=== PATIENT | female | born 1980 | race Caucasian/White ===

== ENCOUNTER 2018-03-06 15:56 | Emergency (ER) | payer OTHER ==
[~2018-03-06] VITALS: Ht 170.2 cm; Wt 74.8 kg
[2018-03-06 15:56] VITALS: BP 123/86
[~2018-03-06 15:56] MED LIST: CIPR500T94 PO; HYDR-971 PO; NAPR-514 PO; PENI250T85 PO
[2018-03-06] MEDS ORDERED: CYCL-331 PO (16:31)
--- NOTE | 2018-03-06 16:32 | PHYS DOC ---
Past History Past Medical History: No Pertinent History Past Surgical History: Alcohol Use: None Drug Use: None Adult General Chief Complaint Chief Complaint: BACK PAIN OR INJURY HPI HPI Patient is a 37 year old F who presents with low back pain. She states that she has had this back pain intermittently over the past 10+ years. Over the past 2- 3 days her pain has been worse and she has been less active. Her pain is worse with movement and palpation. She feels that her pain is improved with positioning and rest. She denies radiation. She denies any other associated symptoms. Review of Systems Review of Systems Constitutional: Denies fever or chills [] Eyes: Denies change in visual acuity, redness, or eye pain [] HENT: Denies nasal congestion or sore throat [] Respiratory: Denies cough or shortness of breath [] Cardiovascular: No additional information not addressed in HPI [] GI: Denies abdominal pain, nausea, vomiting, bloody stools or diarrhea [] : Denies dysuria or hematuria [] Musculoskeletal: Denies joint pain [] Integument: Denies rash or skin lesions [] Neurologic: Denies headache, focal weakness or sensory changes [] Endocrine: Denies polyuria or polydipsia [] All other systems were reviewed and found to be within normal limits, except as documented in this note. Family History Family History No pertinent family medical history was reported Current Medications Current Medications Medications reviewed Allergies Allergies Allergies Coded Allergies Type Severity Reaction Last Updated Verified No Known Drug Allergies 11/30/15 No Physical Exam Physical Exam Constitutional: Well developed, well nourished, no acute distress, non-toxic appearance. [] HENT: Normocephalic, atraumatic, bilateral external ears normal, oropharynx moist Eyes: EOMI, conjunctiva normal, no discharge. [] Neck: Normal range of motion Cardiovascular:Heart rate regular rhythm, Lungs & Thorax: Bilateral breath sounds clear to auscultation [] Abdomen: Bowel sounds normal, soft, no tenderness, no masses, no pulsatile masses. [] Skin: Warm, dry, no erythema, no rash. [] Back: Mild paraspinal muscle spasms noted in the lumbar and lower thoracic spine more so on the right than the left Extremities: No tenderness, no cyanosis, no clubbing, ROM intact, no edema. [] Neurologic: Alert and oriented X 3, normal motor function, normal sensory function, no focal deficits noted. [] Psychologic: Affect normal, judgement normal, mood normal. [] Current Patient Data Vital Signs Vital Signs Date Time Temp Pulse Resp B/P (MAP) Pulse Ox O2 Delivery O2 Flow Rate FiO2 03/06/18 15:56 98.1 84 20 99 Room Air EKG EKG [] Radiology/Procedures Radiology/Procedures [] Course & Med Decision Making Course & Med Decision Making Pertinent Labs and Imaging studies reviewed. (See chart for details) [] Dragon Disclaimer Dragon Disclaimer This electronic medical record was generated, in whole or in part, using a voice recognition dictation system. Departure Departure: Impression: Primary Impression: Low back pain Disposition: HOME, SELF-CARE Condition: STABLE Referrals: PCP,MANUEL (PCP) Patient Instructions: Back Exercises Additional Instructions: Itzel was seen in the emergency department for back pain. No emergency medical condition was found on history or physical exam. She was encouraged to continue her daily activity as tolerated. She is also advised to stretch and strengthen her core. She was given a prescription for muscle relaxers to be used as needed over the next 2-3 days. She was encouraged to follow-up with her primary care doctor as needed for further management. Scripts Cyclobenzaprine Hcl (CYCLOBENZAPRINE HCL) 10 Mg Tablet 1 TAB PO TID Y for PAIN for 3 Days, #9 TAB Prov: GEO FLORES MD 03/06/18 Problem Qualifiers Primary Impression: Low back pain Chronicity: unspecified Back pain laterality: bilateral Sciatica presence: without sciatica Qualified Codes: M54.5 - Low back pain GEO FLORES MD Mar 06, 2018 16:31
== END 2018-03-06 16:40 | disposition home or self-care (01) ==
LOC: ER 15:56
DX: M54.5 Low back pain (principal)
CPT/HCPCS: 99283

== ENCOUNTER → 2018-10-28 | Outpatient (CLI) | payer OTHER ==
[~2018-10-28] MED LIST changes: +CYCL-331 PO; +HYDR-3165 PO; -HYDR-971 PO
--- NOTE | 2018-10-28 15:33 | RAD ---
PA and lateral chest x-ray without comparison for chest pain and left arm numbness, cough. FINDINGS: The lungs are clear. The cardiomediastinum is grossly unremarkable. No significant soft tissue or osseous abnormality is seen. There has been a prior cholecystectomy. IMPRESSION: 1. No acute cardiopulmonary abnormality. Electronically signed by: Sai Humphrey MD (10/28/2018 3:29 PM) [id number]
== END | disposition home or self-care (01) ==
LOC: PMG 10:00
PROVIDERS: ATTEND Physician Assistant Medical
DX: R07.89 Other chest pain (principal); R05 Cough
CPT/HCPCS: 71046